=== PATIENT | female | born 1975 | race Caucasian/White ===

== ENCOUNTER 2018-03-05 20:53 | Emergency (ER) | payer OTHER ==
[~2018-03-05] VITALS: Ht 154.9 cm; Wt 65.1 kg
[2018-03-05 21:10] VITALS: Ht 154.9 cm; Wt 65.1 kg
[2018-03-06 00:44] VITALS: BP 109/75
== END 2018-03-06 00:44 | disposition home or self-care (01) ==
LOC: ED 20:53
DX: J06.9 Acute upper respiratory infection, unspecified (principal); J04.0 Acute laryngitis; F17.200 Nicotine dependence, unspecified, uncomplicated
CPT/HCPCS: 87804; 99406; J7512

== ENCOUNTER → 2018-11-05 | Emergency (ER) | payer SELFPAY ==
[~2018-11-05] VITALS: Ht 154.9 cm; Wt 63.0 kg
[2018-11-05 13:04] VITALS: BP 138/90; Ht 154.9 cm; Wt 63.0 kg
== END ==
LOC: ED 12:58
DX: M25.511 Pain in right shoulder (principal)

== ENCOUNTER 2020-05-24 22:52 | Emergency (ER) | payer BC ==
[~2020-05-24] VITALS: Ht 152.4 cm; Wt 66.7 kg
[2020-05-24 23:03] VITALS: BP 153/88; Ht 152.4 cm; Wt 66.7 kg
== END 2020-05-24 23:45 | disposition home or self-care (01) ==
LOC: ED 22:52
DX: L03.113 Cellulitis of right upper limb (principal)
CPT/HCPCS: J0696